=== PATIENT | male | born 1955 | race Caucasian/White ===

== ENCOUNTER 2021-11-29 20:48 | Emergency (ER) | payer OTHER ==
[2021-11-29 21:45] LABS: HEMOGLOBIN 14.3 gm/dl (14.0-17.5); RED BLOOD COUNT 4.69 M/UL (4.20-5.50)
[2021-11-29 22:09] LABS: BUN/CREATININE RATIO 23 (0-10)
== END 2021-11-30 01:15 | disposition home or self-care (01) ==
LOC: ER1 20:48
PROVIDERS: Family Medicine
DX: R00.1 Bradycardia, unspecified (principal); R42 Dizziness and giddiness; R11.2 Nausea with vomiting, unspecified; Z86.79 Personal history of other diseases of the circulatory system; Z79.899 Other long term (current) drug therapy; Z20.822 Contact with and (suspected) exposure to COVID-19
CPT/HCPCS: 71045; 80053; 81001; 82550; 82553; 84484; 85025; 93005; 96374; 99284; J2405; U0002